=== PATIENT | female | born 1990 | race Caucasian/White ===

== ENCOUNTER 2018-01-31 18:52 | Emergency (ER) | payer SELFPAY ==
[~2018-01-31] VITALS: Ht 165.1 cm; Wt 72.6 kg
[2018-01-31 19:07] VITALS: BP 131/82
[2018-01-31] MEDS ORDERED: NACL 0.9% 1,000 ML IV ONE (20:10)
[2018-01-31] MEDS ORDERED: ALBUTEROL SULFATE/IPRATROPIU 3 ML SOL IH ONE (20:15)
[2018-01-31 21:01] LABS: ANION GAP 11.5 (8-16); CARBON DIOXIDE 28.6 mmol/L (21-32); CREATININE 0.8 mg/dL (0.6-1.3); POTASSIUM 4.1 mmol/L (3.5-5.1)
[2018-01-31] MEDS ORDERED: predniSONE 20 MG TAB PO ONE (21:10)
[2018-01-31 21:26] VITALS: BP 125/80
== END 2018-01-31 21:25 | disposition home or self-care (01) ==
LOC: MED 18:52
DX: J20.9 Acute bronchitis, unspecified (principal); B34.9 Viral infection, unspecified; J06.9 Acute upper respiratory infection, unspecified; J45.909 Unspecified asthma, uncomplicated; F17.210 Nicotine dependence, cigarettes, uncomplicated; Z88.8 Allergy status to other drugs, medicaments and biological substances
CPT/HCPCS: 36415; 71045; 80048; 96360; 99285; J7512; J7620; Q0092; 94640

== ENCOUNTER 2019-01-27 13:53 | Emergency (ER) | payer OTHER ==
[~2019-01-27] VITALS: Ht 165.1 cm; Wt 61.7 kg
[2019-01-27 13:55] VITALS: BP 127/85
--- NOTE | 2019-01-27 14:00 | NUR ---
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 LABORED BREATHING, PT CONTINUES TO LEAN OVER IN ATTEMPT TO GET MORE OXYGEN. PATIENT ON 2-3 LITERS HOME OXYGEN NASAL CANNULA. STATES SHE TOOK BREATHING TREATMENTS AT HOME WITH NO RELIEF. PT TACHY AT 116. RR 20-24. LUNGS RHONCHI BILATERALLY. PT AA0X4. BED IS DOWN, LOCKED, BED RAIL X 1, ERMD TO SEE PT. PMH- COPD, ASTHMA RX- ALBUTEROL
--- NOTE | 2019-01-27 14:00 | NUR ---
PT AMBULATED TO ER BED 02
[2019-01-27] MEDS ORDERED: NACL 0.9% 1,000 ML IV SCH (14:03)
--- NOTE | 2019-01-27 14:03 | NUR ---
PT STARTED ON 4 L NC
--- NOTE | 2019-01-27 14:04 | NUR ---
DR FALK AT BEDSIDE
[2019-01-27] MEDS ORDERED: MAG SULF 2000 MG/WATER PREMIX 50 ML IV ONE (14:05)
[2019-01-27] MEDS ORDERED: diphenhydrAMINE 50 MG/ML VIAL IVP ONE (14:05)
[2019-01-27] MEDS ORDERED: AZITHROMYCIN 500 MG in DEXTROSE 5% 250 ML IV ONE (14:05)
[2019-01-27] MEDS ORDERED: hydrOXYzine HCL 25 MG TAB PO ONE (14:05)
[2019-01-27] MEDS ORDERED: FAMOTIDINE 20 MG/2 ML VIAL IVP ONE (14:05)
[2019-01-27] MEDS ORDERED: methylPREDNISolone SS 125 MG/2 ML VIAL IVP ONE (14:05)
--- NOTE | 2019-01-27 14:11 | NUR ---
XRAY AT BEDSIDE
--- NOTE | 2019-01-27 14:18 | NUR ---
ABG ATTEMPT X 1 PATIENT REFUSED TELEGRAPH REPEATER INSTALLER TO RE-ATTEMPT AT A LATER TIME LILY/CASEY AWARE
[2019-01-27] MEDS ORDERED: AZITHROMYCIN 500 MG INJ VIAL IV ONE (14:20)
--- NOTE | 2019-01-27 14:20 | NUR ---
LABS AND BLOOD CULTURES DRAWN BEDSIDE BY LILY PEÑA
[2019-01-27 14:35] LABS: BASOPHILS % (AUTO) 0.2 % (0.0-2.0); EOSINOPHILS % (AUTO) 0.1 % (0.0-4.0); HEMATOCRIT 42.8 % (36-48); HEMOGLOBIN 14.6 g/dL (12.0-16.0); LYMPHOCYTES # (AUTO) 0.3 K/uL (2.5-16.5); LYMPHOCYTES % (AUTO) 3.8 % (20.5-51.1); MEAN CORPUSCULAR HEMOGLOBIN 29 pg (27-31); MEAN CORPUSCULAR HGB CONC 34 g/dL (33-37); MEAN CORPUSCULAR VOLUME 83.9 fL (80-94); MONOCYTES # (AUTO) 0.1 K/uL (0.8-1.0); MONOCYTES % (AUTO) 1.2 % (1.7-9.3); NEUTROPHILS # (AUTO) 6.4 K/uL (1.8-7.7); NEUTROPHILS % (AUTO) 94.7 % (42.2-75.2); PLATELET COUNT (AUTO) 241 K/uL (140-450); RED CELL DISTRIBUTION WIDTH 13.6 % (11.6-13.7); WHITE BLOOD COUNT (AUTO) 6.8 K/uL (4.8-10.8)
[2019-01-27 14:50] LABS: PROTHROMBIN TIME 9.3 secs (10.8-13.4)
[2019-01-27 14:51] LABS: ANION GAP 13.3 (8-16); CARBON DIOXIDE 25.2 mmol/L (21-32); CREATININE 0.9 mg/dL (0.6-1.3); POTASSIUM 3.5 mmol/L (3.5-5.1)
--- NOTE | 2019-01-27 14:52 | NUR ---
PY UNABLE TO GIVE URINE AT THIS TIME
[2019-01-27 14:57] LABS: ALBUMIN 3.6 g/dL (3.4-5.0); TOTAL BILIRUBIN 0.3 mg/dL (0.0-1.0)
[2019-01-27 14:59] LABS: D-DIMER < 100 ng/ml (0-400)
--- NOTE | 2019-01-27 15:05 | NUR ---
2.6 LACTIC ACID, DR FALK NOTIFIED
--- NOTE | 2019-01-27 15:20 | NUR ---
PT SLEEPING IN BED
--- NOTE | 2019-01-27 15:41 | NUR ---
PT UP FOR DISCHARGE, WAITING FOR FLUIDS TO FINISH RUNNING
--- NOTE | 2019-01-27 15:56 | NUR ---
ZITHROMAX FINISHED RUNNING IN PTS L AC. 1,000 ML NS STARTED IN PTS L AC
--- NOTE | 2019-01-27 16:02 | NUR ---
MAGNESIUM CONTINUES TO RUN IN PTS R AC
--- NOTE | 2019-01-27 16:39 | NUR ---
PT TAKEN OFF OXYGEN. PT ON RA OXYGEN AT 97%
[2019-01-27 16:47] VITALS: BP 120/84
--- NOTE | 2019-01-27 16:47 | NUR ---
Patient discharged with v/s stable. Written and verbal after care instructions given and explained. Patient alert, oriented and verbalized understanding of instructions. Ambulatory with steady gait. All questions addressed prior to discharge. ID band removed. Patient advised to follow up with PMD. Rx of PREDNISONE, AZITHROMYCIN, PROMETHAZINE HYDROCHLORIDE, ALBUTEROL given. Patient educated on indication of medication including possible reaction and side effects. Opportunity to ask questions provided and answered. PT TO FOLLOW UP WITH PULMONOLOGY, MD GOMEZ.
== END 2019-01-27 16:47 | disposition home or self-care (01) ==
LOC: MED 13:53
DX: J45.901 Unspecified asthma with (acute) exacerbation (principal); F17.200 Nicotine dependence, unspecified, uncomplicated; Z88.5 Allergy status to narcotic agent
CPT/HCPCS: 36415; 71045; 80053; 83605; 83735; 85025; 85379; 85610; 87040; 96365; 96366; 96368; 96375; 99284; J0456; J1200; J2930; J3475; J3490; J7030; Q0092; 96367

== ENCOUNTER 2020-03-19 23:22 | Emergency (ER) | payer OTHER ==
[~2020-03-19] VITALS: Ht 165.1 cm; Wt 65.3 kg
[2020-03-19 23:27] VITALS: BP 172/114
--- NOTE | 2020-03-19 23:35 | NUR ---
PT AMBUATED TO BED 4 WITH STEADY GAIT.
--- NOTE | 2020-03-19 23:35 | NUR ---
COVERING PRIMARY RN FOR LUNCH RELIEF ---- 30 Y/O F PRESENTS TO ED WITH C/O VAGINAL PAIN WITH CRAMPING, LOW BACK PAIN, AND BLEEDING X1 DAY. PER PT SHE SATURATED 4 [place] THROUGHOUT THE DAY. IUD IN PLACE X 11 YEARS, PT STATES "I TRIED TO PULL OUT THE IUD, BUT IT FEELS STUCK RIGHT NOW." +HEMATURIA AND FOUL ODOR.
--- NOTE | 2020-03-19 23:40 | NUR ---
Dr. Erazo examining patient.
[2020-03-19] MEDS ORDERED: KETOROLAC 60 MG/2 ML VIAL IM ONE (23:45)
--- NOTE | 2020-03-19 23:50 | NUR ---
STRAIGHT CATH NOT NEEDED. PT ABLE TO PROVIDE URINE SPECIMEN.
--- NOTE | 2020-03-19 23:55 | NUR ---
FEMALE CHAPERONED LETITIA BARRIOS FOR PELVIC EXAM.
--- NOTE | 2020-03-20 | NUR ---
HAND-OFF REPORT GIVEN TO PRIMARY, RN. TRANSFER OF CARE AT THIS TIME.
--- NOTE | 2020-03-20 00:06 | NUR ---
Ultrasound at bedside.
--- NOTE | 2020-03-20 00:07 | NUR ---
FEMALE LOCK OPERATOR AT BEDSIDE WITH PROPERTY DAMAGE CLAIMS ADJUSTOR. PT TOLERATED PROCEDURE WELL.
[2020-03-20 00:20] LABS: APPEARANCE,URINE BLOODY (CLEAR); BILIRUBIN,URINE NEGATIVE (NEGATIVE); BLOOD, URINE 3+ (NEGATIVE); COLOR,URINE RED (YELLOW); LEUKOCYTE ESTERASE ,URINE 1+ (NEGATIVE); NITRITE, URINE NEGATIVE (NEGATIVE); UGLUCOSE NEGATIVE (NEGATIVE)
[2020-03-20 00:30] LABS: RBC,URINE TOO NUMEROUS TO COUN /HPF (0-5)
--- NOTE | 2020-03-20 00:32 | NUR ---
PT STILL COMPLAINING OF PAIN 04/25 ER AWARE
[2020-03-20] MEDS ORDERED: MORPHINE SULFATE 2 MG/ML SYR IVP ONE ×2 (00:35→02:20)
--- NOTE | 2020-03-20 01:18 | NUR ---
PT TAKEN TO CT
--- NOTE | 2020-03-20 02:10 | NUR ---
MD AT BEDSIDE SPEAKING WITH PATIENT.
[2020-03-20 02:38] VITALS: BP 154/87
--- NOTE | 2020-03-20 02:39 | NUR ---
Patient discharged with v/s stable. Written and verbal after care instructions given and explained. Patient alert, oriented and verbalized understanding of instructions. Ambulatory with steady gait. All questions addressed prior to discharge. ID band removed. Patient advised to follow up with PMD. Rx of PERCOCET, NARCAN given. Patient educated on indication of medication including possible reaction and side effects. Opportunity to ask questions provided and answered.
== END 2020-03-20 02:39 | disposition home or self-care (01) ==
LOC: MED 23:22
DX: T83.32XA Displacement of intrauterine contraceptive device, initial encounter (principal); R03.0 Elevated blood-pressure reading, without diagnosis of hypertension; J44.9 Chronic obstructive pulmonary disease, unspecified; F17.210 Nicotine dependence, cigarettes, uncomplicated; Z71.6 Tobacco abuse counseling; Z88.5 Allergy status to narcotic agent
CPT/HCPCS: 74176; 76856; 81001; 81025; 87086; 96372; 96374; 96375; 99285; J1885; J2270; Q0092

== ENCOUNTER 2020-09-27 13:19 | Inpatient (IN) | payer OTHER, SELFPAY ==
[~2020-09-27] VITALS: Ht 167.6 cm; Wt 59.0 kg
--- NOTE | 2020-09-27 13:19 | NUR ---
PT W/C ASSISTED TO BED 12.
[2020-09-27 13:20] VITALS: BP 177/122
--- NOTE | 2020-09-27 13:40 | NUR ---
Note undone in EDM - 09/27/20 at 1633 by MED1 30 YEAR OLD FEMALE COMPLAINS OF VAGINAL PAIN X YESTERDAY. PT STATES THAT PAIN IS FROM IUD PLACEMENT 12 YEARS AGO, HAS NOT HAD SURGERY SCHEDULED FOR REMOVAL. PT STATES THERE IS SPOTTING OF BLOOD. PT DENIES CHANGES IN URINATION OR ABDOMINAL PAIN. PT AOX4, BREATHING EVEN AND UNLABORED, SKIN WARM AND DRY. BED IN LOWEST POSITION, LOCKED, BED RAIL UPX1. PMH - HTN, CHF, COPD, ASTHMA ALLERGIES - HYDROCODONE
[2020-09-27] MEDS ORDERED: ONDANSETRON 4 MG/2 ML VIAL IVP ONE (13:45)
[2020-09-27] MEDS ORDERED: MORPHINE SULFATE 4 MG/ML SYR IVP ONE ×2 (13:45→14:35)
--- NOTE | 2020-09-27 14:00 | NUR ---
PT STATES UNABLE TO URINATE FOR URINE , STATES SHE IS IN TOO MUCH PAIN, IN POSITION ON BED. PER ERMD OKAY TO GIVE MORPHINE IVP
[2020-09-27 14:09] LABS: BASOPHILS # (AUTO) 0.1 K/uL (0.00-0.22); BASOPHILS % (AUTO) 0.9 % (0.0-2.0); EOSINOPHILS # (AUTO) 0.7 K/uL (0-0.4); HEMATOCRIT 42.7 % (36-48); HEMOGLOBIN 14.1 g/dL (12.0-16.0); LYMPHOCYTES # (AUTO) 1.8 K/uL (2.5-16.5); LYMPHOCYTES % (AUTO) 18.8 % (20.5-51.1); MEAN CORPUSCULAR HEMOGLOBIN 28 pg (27-31); MEAN CORPUSCULAR HGB CONC 33 g/dL (33-37); MEAN CORPUSCULAR VOLUME 85.2 fL (80-94); MONOCYTES # (AUTO) 0.5 K/uL (0.8-1.0); MONOCYTES % (AUTO) 4.9 % (1.7-9.3); NEUTROPHILS # (AUTO) 6.5 K/uL (1.8-7.7); NEUTROPHILS % (AUTO) 68.4 % (42.2-75.2); PLATELET COUNT (AUTO) 334 K/uL (140-450); RED BLOOD CELL COUNT(AUTO) 5.01 MIL/uL (4.20-5.40); WHITE BLOOD COUNT (AUTO) 9.5 K/uL (4.8-10.8)
--- NOTE | 2020-09-27 14:10 | NUR ---
ERMD AT BEDSIDE WITH SALES AND BUSINESS DEVELOPMENT MANAGER MARKUS PEÑA
[2020-09-27 14:26] LABS: ANION GAP 17.3 (8-16); CARBON DIOXIDE 23.5 mmol/L (21-32); CREATININE 0.8 mg/dL (0.6-1.3); POTASSIUM 3.8 mmol/L (3.5-5.1)
[2020-09-27] MEDS ORDERED: LIDOCAINE JELLY 2% 30 ML TUBE TP ONE (14:30)
[2020-09-27 14:31] LABS: ALBUMIN 3.7 g/dL (3.4-5.0); TOTAL BILIRUBIN 0.5 mg/dL (0.0-1.0)
[2020-09-27] MEDS ORDERED: NACL 0.9% 1,000 ML IV ONE (14:35)
--- NOTE | 2020-09-27 14:55 | NUR ---
PT TAKEN TO RADIOLOGY VIA HOSPITAL BED
--- NOTE | 2020-09-27 15:01 | NUR ---
PT BACK FROM RADIOLOGY
[2020-09-27] MEDS ORDERED: KETAMINE 10 MG/ML UD SYR **ER IVP ONE (15:30)
[2020-09-27] MEDS ORDERED: KETAMINE 500 MG/5 ML VIAL ONE (15:35)
[2020-09-27] MEDS ORDERED: TAMSULOSIN 0.4 MG CAP PO SCH (15:52)
[2020-09-27] MEDS: DEXT 5% / NACL 0.45% 1,000 ML IV SCH ×2 (15:55→21:15)
[2020-09-27] MEDS ORDERED: MORPHINE SULFATE 10 MG/ML VIAL IVP PRN (15:55)
[2020-09-27] MEDS ORDERED: ONDANSETRON 4 MG/2 ML VIAL IVP PRN (15:55)
--- NOTE | 2020-09-27 16:13 | NUR ---
RECEIVED REPORT FROM ER NURSE. PATIENT CC VAGINAL PAIN SINCE 09/26/20. DX: OBSTRUCTING KIDNEY STONE. HX: HTN, CHF, COPD, ASTHMA, IMBEDDED IUD SINCE 03/2020. FULL CODE, ALLERGIC TO HYDROCODONE. PATIENT IS AOx4, IMMENSE PAIN. PAIN RELIEF W/ KETAMINE ONLY. ER VITALS: TEMP 98, PULSE 132, RR 20, BP 177/122, SPO2 96% O RA. PENDING PATIENT'S ARRIVAL TO UNIT
--- NOTE | 2020-09-27 16:14 | NUR ---
Patient will be admitted to care of JACKELIN MINOR. Admited to [facility]. Will go to room 104A. Belongings list completed. Report to DILCIA PEÑA.
[2020-09-27] MEDS ORDERED: ALPR1TAB2 PO (16:27)
[2020-09-27] MEDS ORDERED: ALBU0.0912 INH (16:27)
[2020-09-27] MEDS ORDERED: PRED1TAB3 PO (16:27)
[2020-09-27] MEDS ORDERED: CARV12.5 PO (16:27)
[2020-09-27] MEDS ORDERED: SPIMDI INH (16:27)
--- NOTE | 2020-09-27 16:29 | NUR ---
CALLI SWAB OBTAINED AND TAKEN TO LAB
--- NOTE | 2020-09-27 16:30 | NUR ---
NEW ONSET WHEEZING HEARD THROUGHOUT LUNGS. ERMD AWARE.
--- NOTE | 2020-09-27 16:55 | NUR ---
ERMD SUGGESTED BREATHING TREATMENT FROM RT; PATIENT DENIED.
[2020-09-27 17:06] VITALS: BP 155/118
--- NOTE | 2020-09-27 17:06 | NUR ---
PATIENT ARRIVED TO UNIT. PATIENT ORIENTED TO UNIT, CALL LIGHT IN PLACE, V/S OBTAINED, IV FLUIDS RUNNING. SAFETY MEASURES IN PLACE. WILL CONTINUE TO MONITOR.
--- NOTE | 2020-09-27 17:10 | NUR ---
PT TAKEN TO FLOOR.
--- NOTE | 2020-09-27 19:31 | NUR ---
BEDSIDE ENDORSEMENT GIVEN TO NIGHTSHIFT NURSE FOR CONTINUITY OF CARE.
--- NOTE | 2020-09-27 19:32 | NUR ---
RECEIVED BEDSIDE ENDORSEMENT FROM AM SHIFT RN. PT IS ON SURGERY, PLAN OF CARE DISCUSSED.
[2020-09-27] MEDS ORDERED: PROPOFOL 200 MG/20 ML VIAL IV ONE (19:34)
[2020-09-27] MEDS ORDERED: ONDANSETRON 4 MG/2 ML VIAL ONE (19:34)
[2020-09-27] MEDS ORDERED: DEXAMETHASONE 4 MG/ML VIAL ONE (19:34)
[2020-09-27] MEDS ORDERED: LABETALOL 100 MG/20 ML VIAL ONE (19:34)
[2020-09-27] MEDS ORDERED: DESFLURANE 240 ML BTL INH ONE (19:34)
[2020-09-27] MEDS ORDERED: fentaNYL citrate 0.05 MG/ML VIAL ONE (19:34)
[2020-09-27] MEDS ORDERED: LEVOFLOXACIN 500 MG/D5W PREMIX 100 ML IV ONE (19:52)
[2020-09-27 21:00] VITALS: BP 148/104
--- NOTE | 2020-09-27 21:00 | NUR ---
PT CAME BACK FROM SURGERY, VITAL SIGNS TAKEN AND RECORDED, C/O 6/10 VAGINAL PAIN, WILL MEDICATE ORDERED, KEPT WARM AND COMFORTABLE, CALL LIGHT WITHIN REACH.
[2020-09-27] MEDS: MORPHINE SULFATE 4 MG/ML SYR IVP PRN (21:09)
--- NOTE | 2020-09-27 22:10 | NUR ---
GAVE 2 ADDITIONAL WARM BLANKETS TO PT PER REQUEST.
--- NOTE | 2020-09-28 00:30 | NUR ---
CHECKED PATIENT, RESTING, CALL LIGHT WITHIN REACH.
--- NOTE | 2020-09-28 00:48 | NUR ---
ADJUSTED THE ROOM TEMP BECAUSE PT FEELS HOT. KEPT COMFORTABLE, CALL LIGHT WITHIN REACH.
--- NOTE | 2020-09-28 02:24 | NUR ---
ASLEEP, RESPIRATION EVEN AND UNLABORED, CALL LIGHT WITHIN REACH.
[2020-09-28 04:00] VITALS: BP 132/75
--- NOTE | 2020-09-28 07:38 | NUR ---
RECEIVED PATIENT FROM NIGHT NURSE. PATIENT IN BED SLEEPING, CHEST NOTED RISING. RESP EVEN AND UNLABORED ON ROOM AIR. NO ACUTE S/S DISTRESS. LAC 20G INFUSING D51/2NS. HOB ELEVATED. SAFETY MEASURES IN PLACE. WILL CONTINUE TO MONITOR.
--- NOTE | 2020-09-28 07:38 | NUR ---
PT STABLE, BEDSIDE ENDORSEMENT GIVEN TO AM SHIFT RN FOR CONTINUITY OF CARE.
[2020-09-28 08:00] VITALS: BP 133/81
--- NOTE | 2020-09-28 08:07 | NUR ---
PATIENT HAS BEEN SCREENED AND CATEGORIZED MODERATE NUTRITION RISK. PATIENT WILL BE SEEN WITHIN 3-5 DAYS OF ADMISSION. 09/29/20 - 10/01/[address]
[2020-09-28] MEDS: TAMSULOSIN 0.4 MG CAP PO SCH (08:38)
[2020-09-28] MEDS: MORPHINE SULFATE 4 MG/ML SYR IVP PRN ×2 (08:40→13:38)
[2020-09-28] MEDS: DEXT 5% / NACL 0.45% 1,000 ML IV SCH ×2 (08:41→21:55)
--- NOTE | 2020-09-28 08:53 | NUR ---
PATIENT IN BED AWAKE, ALERT AND ORIENTED X4. RESP EVEN AND UNLABORED ON ROOM AIR. MORNING ROUTINE MEDICATIONS GIVEN, MORPHINE GIVEN FOR PAIN. LAC 20G INFUSING D5 1/2 NS. PATIENT ABLE TO MAKE NEEDS KNOWN AND FOLLOW COMMANDS. HOB ELEVATED. CALL LIGHT WITHIN REACH. WILL CONTINUE TO MONITOR.
[2020-09-28 10:24] LABS: BILIRUBIN,URINE NEGATIVE (NEGATIVE); BLOOD, URINE 3+ (NEGATIVE); COLOR,URINE YELLOW (YELLOW); LEUKOCYTE ESTERASE ,URINE 1+ (NEGATIVE); NITRITE, URINE NEGATIVE (NEGATIVE); UGLUCOSE NEGATIVE (NEGATIVE)
[2020-09-28 10:31] LABS: APPEARANCE,URINE SLIGHTLY HAZY (CLEAR)
[2020-09-28 10:36] LABS: WBC,URINE 0-5 /HPF (0-5)
--- NOTE | 2020-09-28 11:35 | NUR ---
PATIENT IN BED SLEEPING, CHEST NOTED RISING. NO NOTED DISTRESS AT THIS TIME. CALL LIGHT WITHIN REACH. WILL CONTINUE TO MONITOR.
--- NOTE | 2020-09-28 12:55 | NUR ---
SPOKE TO DR SHANNON COVERING FOR DR BRITO ABOUT PATIENT STATUS. PATIENT OK TO DISCONTINUE CRESPO. PATIENT MADE AWARE. PATIENT STATED SHE DOESN'T WANT IT REMOVED UNTIL SHE HAS SOMETHING TO EAT. WILL FOLLOW UP WITH DR BENÍTEZ.
--- NOTE | 2020-09-28 13:29 | NUR ---
RECEIVED ORDER FROM DR BENÍTEZ FOR CARDIAC DIET. ORDER CARRIED OUT.
--- NOTE | 2020-09-28 13:45 | NUR ---
MORPHINE GIVEN D/T VAGINAL PAIN. WILL MONITOR FOR PAIN IMPROVEMENT BEFORE ATTEMPT TO AMBULATE PATIENT. PATIENT AWAKE AND ALERT. CALL LIGHT WITHIN REACH. WILL CONTINUE TO MONITOR.
--- NOTE | 2020-09-28 15:24 | NUR ---
PATIENT IN BED SLEEPING, CHEST NOTED RISING. NO NOTED ACUTE S/S DISTRESS. CALL LIGHT WITHIN REACH. WILL CONTINUE TO MONITOR.
--- NOTE | 2020-09-28 15:30 | NUR ---
PATIENT WAS AWAKE AND WAS ASKED IF SHE WANTED TO AMBULATE AND ALSO IF THE CRESPO CATH CAN BE REMOVED. PATIENT STATED SHE DID NOT WANT TO WALK RIGHT NOW AND DID NOT WANT THE CRESPO REMOVED. PATIENT TEACHING PROVIDED AND PATIENT ENCOURAGED TO AMBULATE TO PREVENT COMPLICATIONS. PATIENT VERBALIZED UNDERSTANDING. PATIENT STATED SHE WILL NOTIFY STAFF WHEN SHE WAS READY. WILL CONTINUE TO MONITOR.
[2020-09-28 16:00] VITALS: BP 122/90
[2020-09-28] MEDS ORDERED: TRAM50TA1 PO (17:31)
--- NOTE | 2020-09-28 18:17 | NUR ---
CRESPO WILL BE KEPT IN PLACE. ORDER TO DISCONTINUE CANCELLED PER DR BENÍTEZ. PATIENT WILL BE CONSULTED WITH DR STEWART FOR IMBEDDED IUD. PATIENT NPO AFTER MIDNIGHT
--- NOTE | 2020-09-28 19:10 | NUR ---
ENDORSED PATIENT TO NIGHT NURSE. PATIENT IN STABLE CONDITION.
--- NOTE | 2020-09-28 19:11 | NUR ---
RECD. RESTING IN BED, AWAKE, A/OX4. RESPIRATION EVEN AND UNLABORED. IV OF D5 0.45 NS INFUSING AT 100 ML/HR, LEFT AC G20. AMBULATING INDEPENDENTLY. F/C PATENT DRAINING CLEAR YELLOW URINE. DR. BENÍTEZ CHECKED PATIENT, COMPLAINT THAT MORPHINE MAKES HER ITCHY, ORDERED DISCONTINUE AND GIVE TRAMADOL INSTEAD. DENIES PAIN 0/10.
[2020-09-28] MEDS ORDERED: traMADol 50 MG TAB PO PRN (19:15)
[2020-09-28 20:00] VITALS: BP 144/84
--- NOTE | 2020-09-28 21:00 | NUR ---
JELLO AND ICE CHIPS GIVEN REQUESTED, NO COMPLAINT OF PAIN 0/10.
--- NOTE | 2020-09-29 | NUR ---
REFUSED IV SITE TO BE CHANGED. WARM BLANKETS GIVEN.
--- NOTE | 2020-09-29 01:58 | NUR ---
Patient's Plan of Care was discussed and reviewed with EAR PULL MACHINE OPERATOR: CASSI HERRERA.
--- NOTE | 2020-09-29 03:00 | NUR ---
LYING ON HER BACK, SLEEPING SOUNDLY IN BED.
[2020-09-29 04:00] VITALS: BP 152/87
--- NOTE | 2020-09-29 06:30 | NUR ---
ABLE TO SLEEP WELL. NO COMPLAINT OF PAIN DURING SHIFT.
--- NOTE | 2020-09-29 07:25 | NUR ---
ENDORSED TO AM SHIFT NURSE FOR CONTINUITY OF CARE.
--- NOTE | 2020-09-29 07:26 | NUR ---
RECEIVED PATIENT REPORT FROM SET UP MECHANIC HEADING MACHINES COAL HAULER AT BEDSIDE. PT RESTING IN BED, AWAKE, A/OX4. RESPIRATION EVEN AND UNLABORED. IV OF D5 1/2 NS INFUSING AT 100 ML/HR, LT AC 20G. PT AMBULATES INDEPENDENTLY. F/C PATENT DRAINING TO GRAVITY WITH CLEAR YELLOW URINE. VERBALIZED PLAN OF CARE, PATIENT VERBALIZED UNDERSTANDING. PT CURRENTLY NPO BEFORE PENDING PROCEDURE WITH DR. STEWART. CALL LIGHT WITHIN REACH, WILL CONTINUE TO MONITOR PATIENT.
[2020-09-29] MEDS: DEXT 5% / NACL 0.45% 1,000 ML IV SCH (07:55)
[2020-09-29 08:00] VITALS: BP 145/89
--- NOTE | 2020-09-29 08:00 | NUR ---
0900 MEDICATION NOT GIVEN. PATIENT NPO FOR POSSIBLE SURGERY WITH DR. STEWART TODAY.
[2020-09-29] MEDS: TAMSULOSIN 0.4 MG CAP PO SCH (08:30)
--- NOTE | 2020-09-29 09:45 | NUR ---
DR STEWART IN TO SPEAK TO PATIENT ABOUT POSSIBLE SURGERY. PATIENT GETTING UPSET, CRYING, NOT GIVING CONSENT BUT WANTING TO DO SURGERY TO ALLEVIATE PAIN. WILL CONTINUE TO MONITOR PATIENT.
--- NOTE | 2020-09-29 10:07 | NUR ---
PELVIC EXAM PERFORMED BY DR. STEWART. IUD PARTIALLY REMOVED. PATIENT CRYING AND MOANING IN PAIN. PRN PAIN MEDICATION GIVEN. PATIENT TOLERATED. NO COMPLAINTS AT THIS TIME. WILL CONTINUE TO MONITOR PATIENT.
[2020-09-29] MEDS ORDERED: METR500T1 PO (10:21)
[2020-09-29] MEDS ORDERED: DOXY100C9 PO (10:21)
--- NOTE | 2020-09-29 10:30 | NUR ---
CRESPO CATHETER REMOVED, 800 ML OF URINE EMPTIED. PATIENT TOLERATED IT. PATIENT AMBULATED TO BATHROOM TO VOID. ALL NEEDS MET AT THIS TIME. CALL LIGHT WITHIN REACH, WILL CONTINUE TO MONITOR PATIENT.
--- NOTE | 2020-09-29 10:44 | NUR ---
PATIENT WHEELED AWAY TO RADIOLOGY TO DO CT. AFTER RESULTS ARE OUT, PATIENT POSSIBLY WILL BE DISCHARGED HOME. PATIENT AWARE OF PLAN, VERBALIZED UNDERSTANDING.
--- NOTE | 2020-09-29 12:35 | NUR ---
PELVIS CT RESULTS CAME OUT. INFORMED DR. STEWART. DR. STEWART LOOKED OVER CT. PATIENT CLEARED FOR DISCHARGE FROM DR. STEWART'S POINT OF VIEW. DR. BENÍTEZ ALSO INFORMED OF PATIENT'S RESULTS. DISCHARGE ORDER ALREADY IN.
--- NOTE | 2020-09-29 12:45 | NUR ---
DISCHARGE INSTRUCTIONS AND EDUCATION GIVEN TO PATIENT. PATIENT VERBALIZED UNDERSTANDING ABOUT PCP & OBGYN FOLLOW UP, TAKING MEDS PRESCRIBED, SIGNED PAPERWORK. IV REMOVED, IV CATHETER INTACT, MINIMAL BLEEDING NOTED, ID BAND REMOVED. PATIENT NOW GETTING DRESSED TO BE DISCHARGED HOME.
--- NOTE | 2020-09-29 13:00 | NUR ---
PATIENT DISCHARGED HOME. PATIENT AMBULATED OFF FLOOR ON STEADY GAIT. TOOK ALL HER BELONGINGS WITH HER.
== END 2020-09-29 13:05 | disposition home or self-care (01) | DRG 532 ==
LOC: MED 13:19 → MTU 15:55
PROVIDERS: ADMIT Hospitalist; ATTEND Hospitalist
PROC: 0TCB8ZZ Extirpation of Matter from Bladder, Via Natural or Artificial Opening Endoscopic (ICD-10-PCS; principal; 2020-09-27 19:15)
PROC: 0TP Urinary System, Removal (ICD-10-PCS; 2020-09-29)
DX: T83.32XA Displacement of intrauterine contraceptive device, initial encounter (principal); N21.1 Calculus in urethra; J44.9 Chronic obstructive pulmonary disease, unspecified; Y83.8 Other surgical procedures as the cause of abnormal reaction of the patient, or of later complication, without mention of misadventure at the time of the procedure; I10 Essential (primary) hypertension; N32.89 Other specified disorders of bladder; I11.0 Hypertensive heart disease with heart failure; K57.30 Diverticulosis of large intestine without perforation or abscess without bleeding; N36.8 Other specified disorders of urethra; K76.0 Fatty (change of) liver, not elsewhere classified; N94.10 Unspecified dyspareunia; R91.1 Solitary pulmonary nodule; N20.0 Calculus of kidney; N73.9 Female pelvic inflammatory disease, unspecified; I50.9 Heart failure, unspecified; Z20.822 Contact with and (suspected) exposure to COVID-19; Z88.5 Allergy status to narcotic agent; Z90.49 Acquired absence of other specified parts of digestive tract; Z98.891 History of uterine scar from previous surgery; Y92.89 Other specified places as the place of occurrence of the external cause
CPT/HCPCS: 36415; 72192; 80053; 81001; 84703; 85025; 87086; 87210; 87491; 96361; 96374; 96375; 96376; 99285; C1769; J1100; J1956; J2270; J2405; J2704; J3010; J3490